=== PATIENT | male | born 1970 | race Caucasian/White ===

== ENCOUNTER 2021-03-09 21:05 | Inpatient (IN) | payer MEDICARE ==
[~2021-03-09] VITALS: Ht 193 cm; Wt 130.9 kg
[2021-03-09 21:42] VITALS: BP 134/88
[2021-03-09] MEDS ORDERED: LIPITOR 20 MG T20 M1 PO (21:46)
[2021-03-09] MEDS ORDERED: BUPROPION XL300 MG PO (21:46)
[2021-03-09] MEDS ORDERED: LEXAPRO20 MG PO (21:47)
[2021-03-09] MEDS ORDERED: SEROQUEL 25 MG25 MG PO (21:47)
[2021-03-09] MEDS ORDERED: LOSARTAN-HCTZ1 EAC3 PO (21:47)
[2021-03-09] MEDS ORDERED: NORVASC10 MG PO (21:48)
[2021-03-09] MEDS ORDERED: ETODOLAC 400 M400 M1 PO (21:48)
[2021-03-09] MEDS ORDERED: PROAIR DIGIHAL90 MCG (21:49)
[2021-03-09 21:55] LABS: ABSOLUTE LYMPHOCYTES 0.6 thou/uL (0.8-5.3); ABSOLUTE MONOCYTES 0.3 thou/uL (0.0-1.2); ABSOLUTE NEUTROPHILS 4.9 thou/uL (1.6-8.1); BASOPHILS 0.1 %; EOSINOPHILS 0.1 %; HEMOGLOBIN 13.9 gm/dL (14.0-18.0); LYMPHOCYTES 10.7 %; MCH 29.1 pg (26.0-34.0); MCV 88.4 fL (80.0-100.0); MONOCYTES 5.2 %; NUCLEATED RBCS 0 /100WBC; PLATELET COUNT* 255 thou/uL (150-400); POLYS 83.9 %; RBC 4.75 mil/uL (4.50-6.00); RDW-CV 14.4 % (10.5-14.5); WBC 5.8 thou/uL (4.0-11.0)
[2021-03-09 22:02] LABS: CALCIUM 8.3 mg/dL (8.5-10.1); CREATININE 2.2 mg/dL (0.6-1.3); POTASSIUM 3.6 mmol/L (3.5-5.1)
[2021-03-09 22:03] LABS: BE 0.8 mmol/L (-2 to +3); PCO2 35.2 mmHg (35.0-45.0); PO2 74.8 mmHg (75.0-100.0); pH 7.456 (7.340-7.450)
[2021-03-09 22:06] LABS: ALBUMIN 3.2 g/dL (3.4-5.0); MAGNESIUM 2.3 mg/dL (1.8-2.4); TOTAL BILIRUBIN 0.3 mg/dL (<0.1-1.0); TOTAL PROTEIN 7.8 g/dL (6.4-8.2)
[2021-03-10 02:44] VITALS: BP 137/79
[2021-03-10 06:26] VITALS: BP 127/65; BP 133/78
[2021-03-10 10:44] VITALS: BP 122/72
--- NOTE | 2021-03-10 13:20 | EKG ---
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[place] : 1970 Requested By: Susanna Hernandez Order Number: [id number] MD: Ronni Landin Measurements Intervals [place] Rate: 88 P: 33 MT: 153 QRS: 24 QRSD: 93 T: 44 QT: 437 QTc: 529 Interpretive Statements Sinus rhythm Probable left atrial enlargement Prolonged QT interval No previous ECG available for comparison Electronically Signed On 03-10-2021 13:20:07 LICENSE ISSUER by Ronni Landin [email or web address] <ELECTRONICALLY SIGNED> By: Ronni Landin MD, [facility] 03/10/21 1320 2135 2135 Ronni Landin MD, [facility] /EPI
[2021-03-10 14:44] VITALS: BP 109/70
[2021-03-10 18:36] VITALS: BP 144/85
[2021-03-11] VITALS (8 sets, daily range): BP systolic 116–134; BP diastolic 47–82
[2021-03-11 03:57] LABS: HEMATOCRIT 38.9 % (42.0-52.0); HEMOGLOBIN 12.8 gm/dL (14.0-18.0); MCH 28.9 pg (26.0-34.0); MCV 87.5 fL (80.0-100.0); MPV 8.1 fl. (7.2-11.1); NUCLEATED RBCS 0 /100WBC; PLATELET COUNT* 243 thou/uL (150-400); RBC 4.44 mil/uL (4.50-6.00); RDW-CV 13.8 % (10.5-14.5); WBC 9.9 thou/uL (4.0-11.0)
[2021-03-11 04:19] LABS: APTT 29.1 Seconds (25.0-31.3); PROTIME 9.9 Seconds (9.20-11.50)
[2021-03-11 04:27] LABS: ALBUMIN 2.5 g/dL (3.4-5.0); ALKALINE PHOSPHATASE 71 U/L (46-116); ANION GAP 8 mmol/L (7-16); BUN 23 mg/dL (7-18); CALCIUM 7.9 mg/dL (8.5-10.1); CHLORIDE 102 mmol/L (98-107); CHOLESTEROL 141 mg/dL (<200); CO2 30 mmol/L (21-32); CREATININE 1.6 mg/dL (0.6-1.3); GLUCOSE 154 mg/dL (70-99); HDL CHOLESTEROL 42 mg/dL (>40); LDL CHOLESTEROL 78 mg/dL (<100); MAGNESIUM 2.1 mg/dL (1.8-2.4); PHOSPHORUS* 2.7 mg/dL (2.5-4.9); POTASSIUM 3.7 mmol/L (3.5-5.1); SGOT 48 U/L (15-37); SGPT 48 U/L (30-65); SODIUM 140 mmol/L (136-145); TC:HDL 3.4 Ratio (Not establshd); TOTAL BILIRUBIN 0.3 mg/dL (<0.1-1.0); TOTAL PROTEIN 6.5 g/dL (6.4-8.2); TRIGLYCERIDE 107 mg/dL (<150); VLDL 21 mg/dL (<40)
[2021-03-11 04:29] LABS: SERUM ASSESSMENT Clear
[2021-03-11 06:10] LABS: ABSOLUTE MONOCYTES 0.4 thou/uL (0.0-1.2); ABSOLUTE NEUTROPHILS 8.5 thou/uL (1.6-8.1)
[2021-03-11 06:11] LABS: PLATELET ESTIMATE ADEQUATE
--- NOTE | 2021-03-11 11:21 | EKG ---
[place] [address] ELECTROCARDIOGRAM REPORT Name: UZMA HUERTA Room: [place] [address] ADM IN .R.#: [id number] Admission: 03/09/21 Attend Phys: Caleb Flores Discharge: Date of : 70 Date of Service: 03/11/21 1004 Report #: [id number] THIS REPORT FOR: //name// [facility] ED Test Date: 2021-03-11 Test Time: 10:04:47 Pat Name: UZMA HUERTA Department: Room: [facility] Gender: M [employer] Specialist: JAGDEEP : 1970 Requested By: Sean Faith Order Number: [id number] Merle MD: Ronni Landin Measurements Intervals [place] Rate: 78 P: 27 NV: 155 QRS: 5 QRSD: 90 T: 7 QT: 361 QTc: 412 Interpretive Statements Sinus rhythm Probable anteroseptal infarct, old Compared to ECG 03/09/2021 21:35:16 Myocardial infarct finding now possible Prolonged QT interval no longer present Electronically Signed On 03-11-2021 11:21:02 QUALITY PROCESS AUDITOR by Ronni Landin [email or web address] <ELECTRONICALLY SIGNED> By: Ronni Landin MD, [facility] 03/11/21 1121 1004 1004 Ronni Landin MD, [facility] /EPI
[2021-03-11] MEDS ORDERED: LODINE400 M1 PO (14:19)
[2021-03-11] MEDS ORDERED: DIPHENHIST50 MG PO (14:20)
[2021-03-11] MEDS ORDERED: TYLENOL325 M1 PO (14:22)
[2021-03-11] MEDS ORDERED: ARTIFICIAL TEAR1510 OPHTHALMIC (14:23)
[2021-03-12 03:53] VITALS: BP 126/68
[2021-03-12 04:47] LABS: BE 2.2 mmol/L (-2 to +3); PCO2 36.3 mmHg (35.0-45.0); pH 7.467 (7.340-7.450)
[2021-03-12 04:52] LABS: PO2 59.7 mmHg (75.0-100.0)
[2021-03-12 04:55] LABS: HEMATOCRIT 38.1 % (42.0-52.0); HEMOGLOBIN 12.8 gm/dL (14.0-18.0); MCH 29.1 pg (26.0-34.0); MCHC 33.5 g/dL (28.0-37.0); MCV 86.9 fL (80.0-100.0); MPV 7.6 fl. (7.2-11.1); RBC 4.39 mil/uL (4.50-6.00); RDW-CV 14.3 % (10.5-14.5)
[2021-03-12 05:33] LABS: CALCIUM 7.9 mg/dL (8.5-10.1); CREATININE 1.3 mg/dL (0.6-1.3); POTASSIUM 3.6 mmol/L (3.5-5.1)
[2021-03-12 07:08] LABS: GLYCOHEMOGLOBIN (HGB A1C) 6.8 % (4.8-5.6)
[2021-03-12 08:00] VITALS: BP 135/79
[2021-03-12 11:08] LABS: BE -2.5 mmol/L (-2 to +3)
[2021-03-12 11:12] LABS: PCO2 61.6 mmHg (35.0-45.0); pH 7.244 (7.340-7.450)
[2021-03-12 11:13] LABS: PO2 35.9 mmHg (75.0-100.0)
[2021-03-12 15:15] LABS: BE 1.6 mmol/L (-2 to +3); PCO2 40.6 mmHg (35.0-45.0); pH 7.425 (7.340-7.450)
[2021-03-12 15:19] LABS: PO2 34.1 mmHg (75.0-100.0)
[2021-03-12 16:53] LABS: BE -0.3 mmol/L (-2 to +3); PCO2 41.4 mmHg (35.0-45.0); pH 7.393 (7.340-7.450)
[2021-03-12 16:56] LABS: PO2 58.1 mmHg (75.0-100.0)
[2021-03-12 21:00] VITALS: BP 135/83
[2021-03-12 22:00] VITALS: BP 128/77
[2021-03-12 23:00] VITALS: BP 130/78; BP 130/79
[2021-03-12 23:33] VITALS: BP 130/78
[2021-03-13] VITALS (24 sets, daily range): BP systolic 96–135; BP diastolic 56–84
[2021-03-13 04:25] LABS: ABSOLUTE LYMPHOCYTES 0.5 thou/uL (0.8-5.3); ABSOLUTE MONOCYTES 0.2 thou/uL (0.0-1.2); ABSOLUTE NEUTROPHILS 6.4 thou/uL (1.6-8.1); BASOPHILS 0.2 %; HEMATOCRIT 39.2 % (42.0-52.0); LYMPHOCYTES 6.7 %; MCH 29.2 pg (26.0-34.0); MCHC 33.1 g/dL (28.0-37.0); MCV 88.1 fL (80.0-100.0); MONOCYTES 3.3 %; MPV 7.6 fl. (7.2-11.1); NUCLEATED RBCS 0 /100WBC; POLYS 89.8 %; RBC 4.44 mil/uL (4.50-6.00); RDW-CV 14.1 % (10.5-14.5); WBC 7.2 thou/uL (4.0-11.0)
[2021-03-13 04:26] LABS: PLATELET COUNT* 190 thou/uL (150-400)
[2021-03-13 04:52] LABS: ALBUMIN 2.3 g/dL (3.4-5.0); CALCIUM 8.1 mg/dL (8.5-10.1); CREATININE 1.5 mg/dL (0.6-1.3); MAGNESIUM 2.4 mg/dL (1.8-2.4); POTASSIUM 3.8 mmol/L (3.5-5.1); TOTAL BILIRUBIN 0.6 mg/dL (<0.1-1.0); TOTAL PROTEIN 6.7 g/dL (6.4-8.2)
[2021-03-13 05:02] LABS: PHOSPHORUS* 3.5 mg/dL (2.5-4.9)
[2021-03-13 10:17] LABS: PCO2 44.3 mmHg (35.0-45.0); pH 7.363 (7.340-7.450)
--- NOTE | 2021-03-13 14:01 | 2DMMODE ---
[place] [address] 2 D/M-MODE ECHOCARDIOGRAM Name: BRADLEYUZMA SEAMAN Room: [address] ADM IN .R.#: [id number] Admission: 03/09/21 Attend Phys: Caleb Flores Discharge: Date of : 70 Date of Service: 03/13/21 1401 Report #: [id number] THIS REPORT FOR: cc: FAM - No family physician/PCP FAM - No family physician/PCP Gokul Anand MD [facility] ~ APPROVED REPORT Study performed: 03/13/2021 11:40:53 EXAM: Comprehensive 2D, Doppler, and color-flow Echocardiogram Patient Location: In-Patient Room #: 001 Status: routine BSA: 2.63 HR: 69 bpm BP: 99/69 mmHg Rhythm: NSR Other Information Study Quality: Adequate.. no parasternal views Indications Dyspnea 2D Dimensions IVSd: 10.32 (7-11mm) LVOT Diam: 24.28 (18-24mm) LVDd: 42.02 mm PWd: 9.16 (7-11mm) Ascending Ao: 31.28 (22-36mm) LVDs: 26.86 (25-40mm) Aortic Root: 35.65 mm Volumes Left Atrial Volume (Systole) LA ESV Index: 12.00 mL/m2 Aortic Valve AoV Peak Bernard.: 1.05 m/s AO Peak Gr.: 4.42 mmHg LVOT Max P.56 mmHg AO Mean Gr.: 2.73 mmHg LVOT Mean P.20 mmHg LVOT Max V: 0.80 m/s AO V2 VTI: 19.17 cm LVOT Mean V: 0.50 m/s ESA (VTI): 4.03 cm2 LVOT V1 VTI: 16.70 [place] [address] 2 D/M-MODE ECHOCARDIOGRAM Name: UZMA HUERTA Room: [address] IN .R.#: [id number] Admission: 03/09/21 Attend Phys: Caleb Flores Discharge: Date of : 70 Date of Service: 03/13/21 1401 Report #: [id number] Mitral Valve E/A Ratio: 1.02 MV Decel. Time: 210.07 ms MV E Max Bernard.: 0.69 m/s MV PHT: 60.92 ms MVA (PHT): 3.61 cm2 TDI E/Lateral E': 5.75 Lateral E' Bernard.: 0.12 m/s Pulmonary Valve PV Peak Bernard.: 0.86 m/s PV Peak Gr.: 2.95 mmHg Tricuspid Valve RAP Estimate: 5.00 mmHg TR Peak Gr.: 20.67 mmHg RVSP: 25.00 mmHg PA Pressure: 25.00 mmHg Left Ventricle The left ventricle is normal size. There is normal LV segmental wall motion. There is normal left ventricular wall thickness. Left ventricular systolic function is normal. LVEF is 55-60%. Transmitral Doppler flow pattern suggests impaired LV relaxation. Right Ventricle The right ventricle is normal size. The right ventricular systolic function is normal. Atria The left atrium size is normal. The right atrium size is normal. Aortic Valve The aortic valve is normal in structure. No aortic regurgitation is present. There is no aortic valvular stenosis. Mitral Valve The mitral valve is normal in structure. There is no mitral valve regurgitation noted. No evidence of mitral valve stenosis. Tricuspid Valve The tricuspid valve is normal in structure. Trace tricuspid regurgitation. Unable to assess PA pressure[place] [address] 2 D/M-MODE ECHOCARDIOGRAM Name: BRADLEYUZMA Room: [address] IN [facility]#: [id number] Admission: 03/09/21 Attend Phys: Caleb Flores Discharge: Date of : 70 Date of Service: 03/13/21 1401 Report #: [id number] The pulmonary valve is normal in structure. Trace pulmonic regurgitation. Great Vessels The aortic root is normal in size. IVC is normal in size and collapses >50% with inspiration. Pericardium There is no pericardial effusion. <Conclusion> The left ventricle is normal size. There is normal left ventricular wall thickness. Left ventricular systolic function is normal. LVEF is 55-60%. Transmitral Doppler flow pattern suggests impaired LV relaxation. There is normal LV segmental wall motion. Trace tricuspid regurgitation. IVC is normal in size and collapses >50% with inspiration. <ELECTRONICALLY SIGNED> By: Gokul Anand MD, FACC 03/13/21 140 00 140 Gokul Anand MD, FACC /INF
[2021-03-14] VITALS (25 sets, daily range): BP systolic 99–143; BP diastolic 56–89
[2021-03-14 07:37] LABS: ABSOLUTE LYMPHOCYTES 0.4 thou/uL (0.8-5.3); ABSOLUTE MONOCYTES 0.7 thou/uL (0.0-1.2); ABSOLUTE NEUTROPHILS 10.2 thou/uL (1.6-8.1); BASOPHILS 0.1 %; HEMATOCRIT 37.5 % (42.0-52.0); HEMOGLOBIN 12.3 gm/dL (14.0-18.0); LYMPHOCYTES 3.5 %; MCH 28.6 pg (26.0-34.0); MCHC 32.6 g/dL (28.0-37.0); MCV 87.6 fL (80.0-100.0); MONOCYTES 5.8 %; MPV 7.9 fl. (7.2-11.1); NUCLEATED RBCS 0 /100WBC; PLATELET COUNT* 247 thou/uL (150-400); POLYS 90.6 %; RBC 4.29 mil/uL (4.50-6.00); RDW-CV 14.1 % (10.5-14.5); WBC 11.2 thou/uL (4.0-11.0)
[2021-03-14 07:48] LABS: ALBUMIN 2.3 g/dL (3.4-5.0); CREATININE 1.6 mg/dL (0.6-1.3); MAGNESIUM 3.1 mg/dL (1.8-2.4); POTASSIUM 3.8 mmol/L (3.5-5.1); TOTAL BILIRUBIN 0.3 mg/dL (<0.1-1.0); TOTAL PROTEIN 6.2 g/dL (6.4-8.2)
[2021-03-14 08:04] LABS: PHOSPHORUS* 3.5 mg/dL (2.5-4.9)
[2021-03-14 10:01] LABS: BE 1.3 mmol/L (-2 to +3); PCO2 41.7 mmHg (35.0-45.0); PO2 83.6 mmHg (75.0-100.0); pH 7.414 (7.340-7.450)
[2021-03-15] VITALS (24 sets, daily range): BP systolic 101–137; BP diastolic 68–86
[2021-03-15 05:31] LABS: HEMATOCRIT 37.5 % (42.0-52.0); HEMOGLOBIN 12.2 gm/dL (14.0-18.0); MCH 29.2 pg (26.0-34.0); MCHC 32.5 g/dL (28.0-37.0); MPV 8.2 fl. (7.2-11.1); NUCLEATED RBCS 0 /100WBC; PLATELET COUNT* 257 thou/uL (150-400); RBC 4.17 mil/uL (4.50-6.00); RDW-CV 14.5 % (10.5-14.5); WBC 13.2 thou/uL (4.0-11.0)
[2021-03-15 06:12] LABS: CREATININE 1.3 mg/dL (0.6-1.3); MAGNESIUM 2.7 mg/dL (1.8-2.4); POTASSIUM 4.3 mmol/L (3.5-5.1); TOTAL BILIRUBIN 0.4 mg/dL (<0.1-1.0); TOTAL PROTEIN 5.6 g/dL (6.4-8.2)
[2021-03-15 07:10] LABS: PHOSPHORUS* 3.8 mg/dL (2.5-4.9)
[2021-03-15 08:07] LABS: ABSOLUTE LYMPHOCYTES 0.4 thou/uL (0.8-5.3); ABSOLUTE NEUTROPHILS 12.2 thou/uL (1.6-8.1); LYMPHOCYTES 2.9 %; POLYS 92.4 %
[2021-03-15 08:08] LABS: ABSOLUTE MONOCYTES 0.6 thou/uL (0.0-1.2); BASOPHILS 0.1 %; MONOCYTES 4.6 %
[2021-03-15 09:32] LABS: BE 0.6 mmol/L (-2 to +3); pH 7.327 (7.340-7.450)
[2021-03-15 09:35] LABS: PCO2 53.7 mmHg (35.0-45.0); PO2 184.5 mmHg (75.0-100.0)
[2021-03-15 16:04] LABS: URINE BILIRUBIN NEGATIVE (Negative); URINE BLOOD 1+ (Negative); URINE CLARITY CLEAR; URINE COLOR YELLOW; URINE GLUCOSE-RANDOM NEGATIVE (Negative); URINE KETONES NEGATIVE (Negative); URINE LEUKOCYTES-REFLEX NEGATIVE (Negative); URINE NITRITE-REFLEX NEGATIVE (Negative); URINE PROTEIN NEGATIVE (Negative); URINE UROBILINOGEN 0.2 E.U./dl (0.2-1.0)
[2021-03-15 16:12] LABS: SQUAMOUS 0-3 Few /LPF (0-3)
[2021-03-15 16:13] LABS: BACTERIA-REFLEX 1-9 Few /HPF (None Seen); CRYSTALS None Seen /LPF (None Seen); HYALINE CASTS 0-3 Few /LPF (None Seen); URINE RBC 3-10 Few /HPF (0-2); URINE WBC-REFLEX 0-5 Rare /HPF (0-5)
[2021-03-15 16:24] LABS: CALCIUM 7.3 mg/dL (8.5-10.1); CREATININE 1.4 mg/dL (0.6-1.3); MAGNESIUM 2.7 mg/dL (1.8-2.4); POTASSIUM 4.4 mmol/L (3.5-5.1)
[2021-03-16] VITALS (21 sets, daily range): BP systolic 126–151; BP diastolic 75–88
[2021-03-16 04:12] LABS: ABSOLUTE LYMPHOCYTES 0.3 thou/uL (0.8-5.3); ABSOLUTE MONOCYTES 0.5 thou/uL (0.0-1.2); ABSOLUTE NEUTROPHILS 10.1 thou/uL (1.6-8.1); BASOPHILS 0.1 %; HEMATOCRIT 36.9 % (42.0-52.0); HEMOGLOBIN 11.8 gm/dL (14.0-18.0); LYMPHOCYTES 3.2 %; MCH 29.3 pg (26.0-34.0); MCV 91.6 fL (80.0-100.0); MONOCYTES 4.4 %; MPV 8.1 fl. (7.2-11.1); NUCLEATED RBCS 0 /100WBC; PLATELET COUNT* 261 thou/uL (150-400); POLYS 92.3 %; RBC 4.03 mil/uL (4.50-6.00); RDW-CV 14.5 % (10.5-14.5); WBC 10.9 thou/uL (4.0-11.0)
[2021-03-16 05:54] LABS: ALBUMIN 2.2 g/dL (3.4-5.0); CALCIUM 7.2 mg/dL (8.5-10.1); CREATININE 1.2 mg/dL (0.6-1.3); MAGNESIUM 2.8 mg/dL (1.8-2.4); PHOSPHORUS* 3.7 mg/dL (2.5-4.9); POTASSIUM 4.7 mmol/L (3.5-5.1); TOTAL BILIRUBIN 0.5 mg/dL (<0.1-1.0); TOTAL PROTEIN 5.5 g/dL (6.4-8.2)
[2021-03-16 14:43] LABS: BE 1.6 mmol/L (-2 to +3); PCO2 49.5 mmHg (35.0-45.0); PO2 97.3 mmHg (75.0-100.0); pH 7.365 (7.340-7.450)
[2021-03-16 14:49] LABS: CALCIUM 7.6 mg/dL (8.5-10.1); CREATININE 1.2 mg/dL (0.6-1.3); POTASSIUM 4.7 mmol/L (3.5-5.1)
[2021-03-17] VITALS (29 sets, daily range): BP systolic 123–148; BP diastolic 50–97
[2021-03-17 05:05] LABS: MCV 89.8 fL (80.0-100.0); NUCLEATED RBCS 0 /100WBC; WBC 13.1 thou/uL (4.0-11.0)
[2021-03-17 05:06] LABS: HEMATOCRIT 33.3 % (42.0-52.0); HEMOGLOBIN 10.9 gm/dL (14.0-18.0); MCH 29.4 pg (26.0-34.0); MCHC 32.8 g/dL (28.0-37.0); MPV 8.6 fl. (7.2-11.1); PLATELET COUNT* 217 thou/uL (150-400); RDW-CV 14.1 % (10.5-14.5)
[2021-03-17 05:27] LABS: ALBUMIN 1.8 g/dL (3.4-5.0); CALCIUM 6.9 mg/dL (8.5-10.1); MAGNESIUM 2.2 mg/dL (1.8-2.4); PHOSPHORUS* 2.6 mg/dL (2.5-4.9); POTASSIUM 3.8 mmol/L (3.5-5.1); TOTAL BILIRUBIN 0.7 mg/dL (<0.1-1.0); TOTAL PROTEIN 4.9 g/dL (6.4-8.2)
[2021-03-17 07:03] LABS: ABSOLUTE LYMPHOCYTES 3.9 thou/uL (0.8-5.3); ABSOLUTE MONOCYTES 0.7 thou/uL (0.0-1.2); ABSOLUTE NEUTROPHILS 8.5 thou/uL (1.6-8.1)
[2021-03-17 07:04] LABS: PLATELET ESTIMATE ADEQUATE
--- NOTE | 2021-03-17 18:57 | CON ---
[address] [address] CONSULTATION Name: UZMA HUERTA Room: [address] ADM IN M.R.#: [id number] Admission: 03/09/21 Attend Phys: Julia Dominguez Discharge: Date of : 70 Report #: [id number] THIS REPORT FOR: cc: JAGJIT - No family physician/PCP JAGJIT - No family physician/PCP Deyvi Vallejo MD ~ DATE OF CONSULTATION: 03/12/2021 REQUESTING PHYSICIAN: Dr. Faith. INDICATION FOR CONSULTATION: Acute hypoxemic respiratory failure secondary to COVID-19. HISTORY OF PRESENT ILLNESS: A 50-year-old gentleman, past medical history is as mentioned below. He is unvaccinated for COVID-19, is now here with respiratory distress secondary to COVID-19. We were unable to maintain O2 saturation on BiPAP and therefore intubated him. The patient is currently requiring paralysis to barely maintain O2 saturation at the high 80s. The patient is unable to provide a further history or review of systems is negative. PAST MEDICAL HISTORY: Diet-controlled diabetes, COPD, depression, hypertension, hyperlipidemia, obesity, body mass index 37, he likely has previously history of obstructive sleep apnea, unknown to me as to whether this has been diagnosed. SOCIAL HISTORY: There is no known history of smoking; however, he has mentioned to have COPD as above. I am unable to ask the patient directly. No known history of heavy alcohol use or illegal drug use. CURRENT MEDICATIONS: List in [facility] reviewed. HOME MEDICATIONS: List in [facility] reviewed. ALLERGIES: CODEINE. FAMILY HISTORY: No pertinent family history. PHYSICAL EXAMINATION: VITAL SIGNS: In the records reviewed with maximal settings on the ventilator with paralysis via finally gotten his O2 saturation up to the high 80s. Endotracheal tube is in good position. NECK: Does not show raised JVP. CHEST: Breath sounds are bilaterally equal. No added sounds. HEART: Regular. No murmur. ABDOMEN: Protuberant, nontender. EXTREMITIES: Lower extremities, trace edema, [place] [address] CONSULTATION Name: UZMA HUERTA Room: [address] IN ..#: [id number] Admission: 03/09/21 Attend Phys: Julia Dominguez Discharge: Date of : 70 Report #: [id number] NEUROLOGIC: Nonfocal before he was sedated and paralyzed. LABORATORY DATA: Chest x-rays are in [facility] and these are reviewed. ASSESSMENT AND PLAN: 1. Acute hypoxemic respiratory failure secondary to COVID-19. The patient is on maximal settings on the ventilator and we have just started paralysis as well. With this, we barely getting O2 saturation in the high 80s. He has a large abdomen. Therefore, it may or may not be beneficial to prone him. We will put him on his side and see how he does. If able to get an A-line, follow ABGs. While understanding risk of renal failure, I did order a large dose of Lasix. We will given potassium with it. We will adjust sedation and follow. 2. COVID-19. Considering inability to oxygenate, I have ordered significant doses of steroid. We will follow remdesivir. Follow LFTs. If Actemra is available, will be beneficial. 3. Pulmonary infiltrates, broaden the antibiotic coverage; however, primarily appears to have acute respiratory distress syndrome secondary to COVID-19. More cultures and serologies are ordered. 4. Hyperglycemia, insulin sliding scale. 5. Gastrointestinal prophylaxis, Protonix. 6. Clostridium difficile prophylaxis, Lactinex. 7. Deep venous thrombosis prophylaxis, intermediate dose Lovenox. 8. History of chronic obstructive pulmonary disease. I do not have details available. I will treat him with nebulized bronchodilators. He is on steroid as above. 9. History of obesity, likely has underlying obstructive sleep apnea. 10. History of bupropion as well as Celexa use. The patient is critically ill at this time. Total time spent providing critical care to this patient today exceeds 50 minutes. <ELECTRONICALLY SIGNED> By: Deyvi Vallejo MD 03/17/21 1857 1442 1857Awaylon Vallejo MD /nt
[2021-03-18] VITALS (40 sets, daily range): BP systolic 128–158; BP diastolic 77–102
[2021-03-18 05:17] LABS: ABSOLUTE LYMPHOCYTES 0.4 thou/uL (0.8-5.3); ABSOLUTE MONOCYTES 0.4 thou/uL (0.0-1.2); ABSOLUTE NEUTROPHILS 9.9 thou/uL (1.6-8.1); BASOPHILS 0.1 %; EOSINOPHILS 0.1 %; HEMATOCRIT 31.7 % (42.0-52.0); HEMOGLOBIN 10.5 gm/dL (14.0-18.0); LYMPHOCYTES 4.1 %; MCH 29.4 pg (26.0-34.0); MCV 89.2 fL (80.0-100.0); MONOCYTES 3.3 %; MPV 8.3 fl. (7.2-11.1); NUCLEATED RBCS 0 /100WBC; PLATELET COUNT* 166 thou/uL (150-400); POLYS 92.4 %; RBC 3.55 mil/uL (4.50-6.00); RDW-CV 14.1 % (10.5-14.5); WBC 10.7 thou/uL (4.0-11.0)
[2021-03-18 05:53] LABS: PHOSPHORUS* 2.5 mg/dL (2.5-4.9)
[2021-03-18 06:04] LABS: ALBUMIN 2.4 g/dL (3.4-5.0); CALCIUM 7.1 mg/dL (8.5-10.1); CREATININE 0.9 mg/dL (0.6-1.3); MAGNESIUM 2.4 mg/dL (1.8-2.4); POTASSIUM 3.9 mmol/L (3.5-5.1); TOTAL BILIRUBIN 1.1 mg/dL (<0.1-1.0); TOTAL PROTEIN 5.3 g/dL (6.4-8.2)
[2021-03-18 08:49] LABS: BE 4.3 mmol/L (-2 to +3); PCO2 43.4 mmHg (35.0-45.0); PO2 74.4 mmHg (75.0-100.0); pH 7.442 (7.340-7.450)
[2021-03-19] VITALS (47 sets, daily range): BP systolic 132–159; BP diastolic 76–107
[2021-03-19 05:14] LABS: ABSOLUTE BASOPHILS 0.1 thou/uL (0.0-0.2); ABSOLUTE LYMPHOCYTES 0.2 thou/uL (0.8-5.3); ABSOLUTE MONOCYTES 0.3 thou/uL (0.0-1.2); ABSOLUTE NEUTROPHILS 11.9 thou/uL (1.6-8.1); BASOPHILS 0.8 %; HEMATOCRIT 33.4 % (42.0-52.0); HEMOGLOBIN 10.8 gm/dL (14.0-18.0); LYMPHOCYTES 1.8 %; MCHC 32.3 g/dL (28.0-37.0); MCV 89.7 fL (80.0-100.0); MONOCYTES 2.6 %; MPV 8.9 fl. (7.2-11.1); NUCLEATED RBCS 0 /100WBC; PLATELET COUNT* 172 thou/uL (150-400); POLYS 94.8 %; RBC 3.72 mil/uL (4.50-6.00); RDW-CV 14.1 % (10.5-14.5); WBC 12.5 thou/uL (4.0-11.0)
[2021-03-19 05:22] LABS: ALBUMIN 2.3 g/dL (3.4-5.0); CALCIUM 7.4 mg/dL (8.5-10.1); CREATININE 1.1 mg/dL (0.6-1.3); MAGNESIUM 2.4 mg/dL (1.8-2.4); POTASSIUM 4.2 mmol/L (3.5-5.1); TOTAL PROTEIN 5.4 g/dL (6.4-8.2)
[2021-03-19 05:49] LABS: PHOSPHORUS* 3.6 mg/dL (2.5-4.9)
[2021-03-19 08:48] LABS: BE 1.7 mmol/L (-2 to +3); pH 7.424 (7.340-7.450)
[2021-03-20] VITALS (47 sets, daily range): BP systolic 104–158; BP diastolic 80–96
[2021-03-20 04:27] LABS: ABSOLUTE LYMPHOCYTES 0.5 thou/uL (0.8-5.3); ABSOLUTE MONOCYTES 0.3 thou/uL (0.0-1.2); ABSOLUTE NEUTROPHILS 11.8 thou/uL (1.6-8.1); BASOPHILS 0.2 %; EOSINOPHILS 0.1 %; HEMATOCRIT 32.5 % (42.0-52.0); HEMOGLOBIN 10.5 gm/dL (14.0-18.0); LYMPHOCYTES 3.6 %; MCH 29.2 pg (26.0-34.0); MCHC 32.3 g/dL (28.0-37.0); MCV 90.4 fL (80.0-100.0); MONOCYTES 2.4 %; MPV 9.4 fl. (7.2-11.1); NUCLEATED RBCS 0 /100WBC; PLATELET COUNT* 171 thou/uL (150-400); POLYS 93.7 %; RBC 3.59 mil/uL (4.50-6.00); RDW-CV 14.5 % (10.5-14.5); WBC 12.6 thou/uL (4.0-11.0)
[2021-03-20 04:45] LABS: ALBUMIN 2.2 g/dL (3.4-5.0); CALCIUM 7.3 mg/dL (8.5-10.1); CREATININE 0.9 mg/dL (0.6-1.3); POTASSIUM 4.4 mmol/L (3.5-5.1); TOTAL BILIRUBIN 0.9 mg/dL (<0.1-1.0); TOTAL PROTEIN 5.3 g/dL (6.4-8.2)
[2021-03-20 17:48] LABS: CALCIUM 7.9 mg/dL (8.5-10.1); POTASSIUM 4.4 mmol/L (3.5-5.1)
[2021-03-21] VITALS (44 sets, daily range): BP systolic 108–156; BP diastolic 66–100
[2021-03-21 05:42] LABS: HEMOGLOBIN 10.7 gm/dL (14.0-18.0); MCH 28.9 pg (26.0-34.0); MCHC 32.3 g/dL (28.0-37.0); MCV 89.3 fL (80.0-100.0); MPV 9.7 fl. (7.2-11.1); NUCLEATED RBCS 0 /100WBC; PLATELET COUNT* 196 thou/uL (150-400); RBC 3.69 mil/uL (4.50-6.00); RDW-CV 13.9 % (10.5-14.5); WBC 13.2 thou/uL (4.0-11.0)
[2021-03-21 06:12] LABS: PHOSPHORUS* 4.4 mg/dL (2.5-4.9)
[2021-03-21 06:23] LABS: ALBUMIN 2.4 g/dL (3.4-5.0); CALCIUM 7.6 mg/dL (8.5-10.1); CREATININE 0.9 mg/dL (0.6-1.3); POTASSIUM 4.4 mmol/L (3.5-5.1); TOTAL BILIRUBIN 1.1 mg/dL (<0.1-1.0); TOTAL PROTEIN 5.5 g/dL (6.4-8.2)
[2021-03-21 07:02] LABS: ABSOLUTE EOSINOPHILS 0.1 thou/uL (0.0-0.7); ABSOLUTE LYMPHOCYTES 1.6 thou/uL (0.8-5.3); ABSOLUTE MONOCYTES 0.4 thou/uL (0.0-1.2); ABSOLUTE NEUTROPHILS 11.1 thou/uL (1.6-8.1); HYPOCHROMASIA 1+; PLATELET ESTIMATE ADEQUATE
[2021-03-21 08:54] LABS: BE 4.6 mmol/L (-2 to +3); PO2 62.1 mmHg (75.0-100.0); pH 7.472 (7.340-7.450)
[2021-03-21 15:45] LABS: CALCIUM 7.8 mg/dL (8.5-10.1); CREATININE 0.8 mg/dL (0.6-1.3); MAGNESIUM 1.9 mg/dL (1.8-2.4); POTASSIUM 4.5 mmol/L (3.5-5.1)
[2021-03-22] VITALS (25 sets, daily range): BP systolic 118–145; BP diastolic 63–95
[2021-03-22 04:33] LABS: ABSOLUTE LYMPHOCYTES 0.4 thou/uL (0.8-5.3); ABSOLUTE MONOCYTES 0.5 thou/uL (0.0-1.2); ABSOLUTE NEUTROPHILS 13.2 thou/uL (1.6-8.1); EOSINOPHILS 0.1 %; HEMATOCRIT 30.6 % (42.0-52.0); LYMPHOCYTES 2.9 %; MCH 29.2 pg (26.0-34.0); MCHC 32.6 g/dL (28.0-37.0); MCV 89.3 fL (80.0-100.0); MONOCYTES 3.2 %; MPV 10.1 fl. (7.2-11.1); NUCLEATED RBCS 0 /100WBC; PLATELET COUNT* 174 thou/uL (150-400); POLYS 93.8 %; RBC 3.42 mil/uL (4.50-6.00); RDW-CV 13.9 % (10.5-14.5); WBC 14.1 thou/uL (4.0-11.0)
[2021-03-22 05:18] LABS: ALBUMIN 2.6 g/dL (3.4-5.0); CALCIUM 7.6 mg/dL (8.5-10.1); CREATININE 0.7 mg/dL (0.6-1.3); MAGNESIUM 1.9 mg/dL (1.8-2.4); POTASSIUM 4.1 mmol/L (3.5-5.1); TOTAL BILIRUBIN 1.1 mg/dL (<0.1-1.0); TOTAL PROTEIN 5.3 g/dL (6.4-8.2)
[2021-03-22 08:25] LABS: BE 2.1 mmol/L (-2 to +3); PCO2 38.1 mmHg (35.0-45.0); PO2 70.9 mmHg (75.0-100.0); pH 7.453 (7.340-7.450)
[2021-03-23] VITALS (35 sets, daily range): BP systolic 106–150; BP diastolic 64–89
[2021-03-23 05:25] LABS: ABSOLUTE LYMPHOCYTES 0.6 thou/uL (0.8-5.3); ABSOLUTE MONOCYTES 0.4 thou/uL (0.0-1.2); ABSOLUTE NEUTROPHILS 12.1 thou/uL (1.6-8.1); BASOPHILS 0.3 %; EOSINOPHILS 0.1 %; HEMATOCRIT 31.7 % (42.0-52.0); HEMOGLOBIN 10.2 gm/dL (14.0-18.0); LYMPHOCYTES 4.8 %; MCH 28.8 pg (26.0-34.0); MCHC 32.2 g/dL (28.0-37.0); MCV 89.3 fL (80.0-100.0); MPV 9.6 fl. (7.2-11.1); NUCLEATED RBCS 0 /100WBC; PLATELET COUNT* 225 thou/uL (150-400); POLYS 91.8 %; RBC 3.55 mil/uL (4.50-6.00); RDW-CV 13.7 % (10.5-14.5); WBC 13.2 thou/uL (4.0-11.0)
[2021-03-23 05:34] LABS: ALBUMIN 2.5 g/dL (3.4-5.0); CALCIUM 7.9 mg/dL (8.5-10.1); CREATININE 0.6 mg/dL (0.6-1.3); POTASSIUM 4.5 mmol/L (3.5-5.1); TOTAL BILIRUBIN 0.9 mg/dL (<0.1-1.0); TOTAL PROTEIN 5.6 g/dL (6.4-8.2)
[2021-03-23 05:52] LABS: PREALBUMIN 21.1 mg/dL (18.0-35.7)
[2021-03-24] VITALS (45 sets, daily range): BP systolic 86–169; BP diastolic 51–98
[2021-03-24 04:32] LABS: ABSOLUTE BASOPHILS 0.2 thou/uL (0.0-0.2); ABSOLUTE EOSINOPHILS 0.1 thou/uL (0.0-0.7); ABSOLUTE LYMPHOCYTES 0.4 thou/uL (0.8-5.3); ABSOLUTE MONOCYTES 0.6 thou/uL (0.0-1.2); ABSOLUTE NEUTROPHILS 15.7 thou/uL (1.6-8.1); BASOPHILS 0.9 %; EOSINOPHILS 0.4 %; HEMOGLOBIN 10.4 gm/dL (14.0-18.0); LYMPHOCYTES 2.5 %; MCH 28.8 pg (26.0-34.0); MCHC 32.4 g/dL (28.0-37.0); MCV 88.8 fL (80.0-100.0); MONOCYTES 3.7 %; MPV 9.2 fl. (7.2-11.1); NUCLEATED RBCS 0 /100WBC; PLATELET COUNT* 292 thou/uL (150-400); POLYS 92.5 %; RDW-CV 13.6 % (10.5-14.5)
[2021-03-24 04:50] LABS: ALBUMIN 2.5 g/dL (3.4-5.0); CALCIUM 7.7 mg/dL (8.5-10.1); CREATININE 0.8 mg/dL (0.6-1.3); MAGNESIUM 1.8 mg/dL (1.8-2.4); PHOSPHORUS* 3.7 mg/dL (2.5-4.9); POTASSIUM 4.3 mmol/L (3.5-5.1); TOTAL BILIRUBIN 1.1 mg/dL (<0.1-1.0); TOTAL PROTEIN 5.4 g/dL (6.4-8.2)
[2021-03-25] VITALS (172 sets, daily range): BP systolic 65–203; BP diastolic 26–115
[2021-03-25 09:26] LABS: HEMATOCRIT 30.7 % (42.0-52.0); MCH 29.2 pg (26.0-34.0); MCHC 32.7 g/dL (28.0-37.0); MCV 89.3 fL (80.0-100.0); MPV 8.7 fl. (7.2-11.1); NUCLEATED RBCS 0 /100WBC; RBC 3.44 mil/uL (4.50-6.00); RDW-CV 13.9 % (10.5-14.5)
[2021-03-25 09:32] LABS: PLATELET COUNT* 375 thou/uL (150-400)
[2021-03-25 09:43] LABS: ALBUMIN 2.6 g/dL (3.4-5.0); CALCIUM 7.6 mg/dL (8.5-10.1); CREATININE 0.9 mg/dL (0.6-1.3); MAGNESIUM 2.3 mg/dL (1.8-2.4); POTASSIUM 3.5 mmol/L (3.5-5.1); TOTAL PROTEIN 5.5 g/dL (6.4-8.2)
[2021-03-25 10:26] LABS: ABSOLUTE EOSINOPHILS 0.4 thou/uL (0.0-0.7); ABSOLUTE LYMPHOCYTES 1.4 thou/uL (0.8-5.3); ABSOLUTE MONOCYTES 0.7 thou/uL (0.0-1.2); ABSOLUTE NEUTROPHILS 15.5 thou/uL (1.6-8.1); PLATELET ESTIMATE ADEQUATE
[2021-03-25 14:23] LABS: CREATININE 0.7 mg/dL (0.6-1.3); POTASSIUM 3.8 mmol/L (3.5-5.1)
[2021-03-25 14:36] LABS: MAGNESIUM 1.8 mg/dL (1.8-2.4)
[2021-03-25 14:45] LABS: CALCIUM 5.3 mg/dL (8.5-10.1)
[2021-03-25 17:39] LABS: CREATININE 0.8 mg/dL (0.6-1.3); MAGNESIUM 2.5 mg/dL (1.8-2.4)
[2021-03-25 17:44] LABS: CALCIUM 7.8 mg/dL (8.5-10.1)
[2021-03-26] VITALS (145 sets, daily range): BP systolic 74–155; BP diastolic 25–95
[2021-03-26 04:44] LABS: ABSOLUTE EOSINOPHILS 0.1 thou/uL (0.0-0.7); ABSOLUTE LYMPHOCYTES 1.1 thou/uL (0.8-5.3); ABSOLUTE MONOCYTES 0.8 thou/uL (0.0-1.2); ABSOLUTE NEUTROPHILS 14.6 thou/uL (1.6-8.1); BASOPHILS 0.2 %; EOSINOPHILS 0.5 %; HEMATOCRIT 28.6 % (42.0-52.0); LYMPHOCYTES 6.4 %; MCH 31.4 pg (26.0-34.0); MCHC 34.8 g/dL (28.0-37.0); MCV 90.3 fL (80.0-100.0); MONOCYTES 4.8 %; NUCLEATED RBCS 0 /100WBC; PLATELET COUNT* 338 thou/uL (150-400); POLYS 88.1 %; RBC 3.17 mil/uL (4.50-6.00); RDW-CV 14.7 % (10.5-14.5); WBC 16.6 thou/uL (4.0-11.0)
[2021-03-26 05:41] LABS: POTASSIUM 3.4 mmol/L (3.5-5.1)
[2021-03-26 05:44] LABS: PHOSPHORUS* 3.1 mg/dL (2.5-4.9)
[2021-03-26 07:31] LABS: CREATININE 0.9 mg/dL (0.6-1.3)
[2021-03-26 07:32] LABS: ALBUMIN 2.5 g/dL (3.4-5.0); CALCIUM 6.8 mg/dL (8.5-10.1); MAGNESIUM 2.2 mg/dL (1.8-2.4); TOTAL BILIRUBIN 0.8 mg/dL (<0.1-1.0); TOTAL PROTEIN 4.9 g/dL (6.4-8.2)
[2021-03-26 15:42] LABS: BE 2.9 mmol/L (-2 to +3); PCO2 37.1 mmHg (35.0-45.0); PO2 61.9 mmHg (75.0-100.0); pH 7.471 (7.340-7.450)
[2021-03-26 18:11] LABS: CALCIUM 7.9 mg/dL (8.5-10.1); CREATININE 0.9 mg/dL (0.6-1.3); MAGNESIUM 2.3 mg/dL (1.8-2.4)
[2021-03-26 18:12] LABS: POTASSIUM 4.4 mmol/L (3.5-5.1)
[2021-03-27] VITALS (105 sets, daily range): BP systolic 88–126; BP diastolic 40–72
[2021-03-27 05:29] LABS: ABSOLUTE EOSINOPHILS 0.1 thou/uL (0.0-0.7); ABSOLUTE MONOCYTES 0.5 thou/uL (0.0-1.2); ABSOLUTE NEUTROPHILS 11.9 thou/uL (1.6-8.1); BASOPHILS 0.2 %; EOSINOPHILS 0.4 %; HEMATOCRIT 28.3 % (42.0-52.0); HEMOGLOBIN 9.2 gm/dL (14.0-18.0); LYMPHOCYTES 7.3 %; MCH 29.3 pg (26.0-34.0); MCHC 32.6 g/dL (28.0-37.0); MPV 8.4 fl. (7.2-11.1); NUCLEATED RBCS 0 /100WBC; PLATELET COUNT* 282 thou/uL (150-400); POLYS 88.1 %; RBC 3.15 mil/uL (4.50-6.00); RDW-CV 14.6 % (10.5-14.5); WBC 13.5 thou/uL (4.0-11.0)
[2021-03-27 06:01] LABS: ALBUMIN 2.9 g/dL (3.4-5.0); CREATININE 0.8 mg/dL (0.6-1.3); MAGNESIUM 2.2 mg/dL (1.8-2.4); TOTAL BILIRUBIN 0.6 mg/dL (<0.1-1.0)
[2021-03-27 20:16] LABS: CALCIUM 7.8 mg/dL (8.5-10.1); CREATININE 0.7 mg/dL (0.6-1.3); MAGNESIUM 2.5 mg/dL (1.8-2.4); POTASSIUM 4.4 mmol/L (3.5-5.1)
[2021-03-28] VITALS (48 sets, daily range): BP systolic 90–148; BP diastolic 54–93
[2021-03-28 04:00] LABS: ABSOLUTE EOSINOPHILS 0.3 thou/uL (0.0-0.7); ABSOLUTE LYMPHOCYTES 1.5 thou/uL (0.8-5.3); ABSOLUTE MONOCYTES 0.5 thou/uL (0.0-1.2); ABSOLUTE NEUTROPHILS 9.7 thou/uL (1.6-8.1); BASOPHILS 0.3 %; EOSINOPHILS 2.2 %; HEMATOCRIT 26.7 % (42.0-52.0); HEMOGLOBIN 8.5 gm/dL (14.0-18.0); LYMPHOCYTES 12.8 %; MCH 29.2 pg (26.0-34.0); MCV 91.1 fL (80.0-100.0); MPV 8.4 fl. (7.2-11.1); NUCLEATED RBCS 0 /100WBC; PLATELET COUNT* 296 thou/uL (150-400); POLYS 80.7 %; RBC 2.93 mil/uL (4.50-6.00); WBC 12.1 thou/uL (4.0-11.0)
[2021-03-28 04:21] LABS: ALBUMIN 2.7 g/dL (3.4-5.0); CALCIUM 7.8 mg/dL (8.5-10.1); CREATININE 0.9 mg/dL (0.6-1.3); MAGNESIUM 2.4 mg/dL (1.8-2.4); POTASSIUM 3.7 mmol/L (3.5-5.1); TOTAL BILIRUBIN 0.6 mg/dL (<0.1-1.0); TOTAL PROTEIN 5.7 g/dL (6.4-8.2)
[2021-03-28 04:33] LABS: PHOSPHORUS* 3.3 mg/dL (2.5-4.9)
[2021-03-28 16:56] LABS: BE 4.1 mmol/L (-2 to +3); PCO2 44.4 mmHg (35.0-45.0); PO2 99.6 mmHg (75.0-100.0); pH 7.431 (7.340-7.450)
[2021-03-28 19:33] LABS: CREATININE 0.8 mg/dL (0.6-1.3); MAGNESIUM 2.4 mg/dL (1.8-2.4); POTASSIUM 4.5 mmol/L (3.5-5.1)
[2021-03-29] VITALS (29 sets, daily range): BP systolic 107–166; BP diastolic 69–105
[2021-03-29 05:12] LABS: ALBUMIN 2.4 g/dL (3.4-5.0); CALCIUM 7.8 mg/dL (8.5-10.1); CREATININE 0.8 mg/dL (0.6-1.3); MAGNESIUM 2.3 mg/dL (1.8-2.4); POTASSIUM 3.9 mmol/L (3.5-5.1); TOTAL BILIRUBIN 0.5 mg/dL (<0.1-1.0); TOTAL PROTEIN 5.6 g/dL (6.4-8.2)
[2021-03-29 05:51] LABS: ABSOLUTE BASOPHILS 0.1 thou/uL (0.0-0.2); ABSOLUTE EOSINOPHILS 0.2 thou/uL (0.0-0.7); ABSOLUTE LYMPHOCYTES 1.2 thou/uL (0.8-5.3); ABSOLUTE MONOCYTES 0.5 thou/uL (0.0-1.2); ABSOLUTE NEUTROPHILS 8.6 thou/uL (1.6-8.1); BASOPHILS 1.1 %; EOSINOPHILS 1.9 %; HEMATOCRIT 28.5 % (42.0-52.0); HEMOGLOBIN 8.8 gm/dL (14.0-18.0); LYMPHOCYTES 11.2 %; MCH 28.1 pg (26.0-34.0); MCHC 30.7 g/dL (28.0-37.0); MCV 91.2 fL (80.0-100.0); MONOCYTES 4.6 %; MPV 8.5 fl. (7.2-11.1); NUCLEATED RBCS 0 /100WBC; PLATELET COUNT* 283 thou/uL (150-400); POLYS 81.2 %; RBC 3.12 mil/uL (4.50-6.00); RDW-CV 15.2 % (10.5-14.5); WBC 10.6 thou/uL (4.0-11.0)
[2021-03-29 15:52] LABS: PCO2 43.9 mmHg (35.0-45.0); PO2 62.4 mmHg (75.0-100.0); pH 7.406 (7.340-7.450)
[2021-03-29 15:53] LABS: BE 1.9 mmol/L (-2 to +3)
[2021-03-30] VITALS (21 sets, daily range): BP systolic 97–135; BP diastolic 47–86
[2021-03-30 04:37] LABS: ABSOLUTE BASOPHILS 0.1 thou/uL (0.0-0.2); ABSOLUTE EOSINOPHILS 0.3 thou/uL (0.0-0.7); ABSOLUTE LYMPHOCYTES 1.4 thou/uL (0.8-5.3); ABSOLUTE MONOCYTES 0.5 thou/uL (0.0-1.2); ABSOLUTE NEUTROPHILS 9.9 thou/uL (1.6-8.1); BASOPHILS 0.7 %; EOSINOPHILS 2.2 %; HEMATOCRIT 28.8 % (42.0-52.0); HEMOGLOBIN 9.3 gm/dL (14.0-18.0); LYMPHOCYTES 11.6 %; MCH 29.2 pg (26.0-34.0); MCHC 32.2 g/dL (28.0-37.0); MCV 90.9 fL (80.0-100.0); MONOCYTES 4.2 %; MPV 8.2 fl. (7.2-11.1); NUCLEATED RBCS 0 /100WBC; PLATELET COUNT* 298 thou/uL (150-400); POLYS 81.3 %; RBC 3.17 mil/uL (4.50-6.00); RDW-CV 14.6 % (10.5-14.5); WBC 12.2 thou/uL (4.0-11.0)
[2021-03-30 05:28] LABS: ALBUMIN 2.6 g/dL (3.4-5.0); CREATININE 0.7 mg/dL (0.6-1.3); POTASSIUM 3.7 mmol/L (3.5-5.1); TOTAL BILIRUBIN 0.7 mg/dL (<0.1-1.0); TOTAL PROTEIN 5.8 g/dL (6.4-8.2)
[2021-03-30 05:49] LABS: BE 1.2 mmol/L (-2 to +3); PCO2 35.1 mmHg (35.0-45.0); PO2 64.9 mmHg (75.0-100.0); pH 7.466 (7.340-7.450)
[2021-03-31] VITALS (38 sets, daily range): BP systolic 85–148; BP diastolic 46–87
[2021-03-31 08:15] LABS: HEMATOCRIT 28.5 % (42.0-52.0); HEMOGLOBIN 9.4 gm/dL (14.0-18.0); MCV 93.8 fL (80.0-100.0); MPV 8.6 fl. (7.2-11.1); NUCLEATED RBCS 0 /100WBC; PLATELET COUNT* 284 thou/uL (150-400); RBC 3.04 mil/uL (4.50-6.00); RDW-CV 14.9 % (10.5-14.5); WBC 11.1 thou/uL (4.0-11.0)
[2021-03-31 08:17] LABS: CREATININE 0.7 mg/dL (0.6-1.3); MAGNESIUM 2.2 mg/dL (1.8-2.4); POTASSIUM 3.9 mmol/L (3.5-5.1)
[2021-03-31 09:20] LABS: ABSOLUTE BASOPHILS 0.1 thou/uL (0.0-0.2); ABSOLUTE EOSINOPHILS 0.4 thou/uL (0.0-0.7); ABSOLUTE LYMPHOCYTES 1.6 thou/uL (0.8-5.3); ABSOLUTE MONOCYTES 0.3 thou/uL (0.0-1.2); ABSOLUTE NEUTROPHILS 8.7 thou/uL (1.6-8.1); PLATELET ESTIMATE ADEQUATE
[2021-03-31 10:36] LABS: BE 0.8 mmol/L (-2 to +3); PCO2 38.2 mmHg (35.0-45.0); PO2 71.3 mmHg (75.0-100.0); pH 7.434 (7.340-7.450)
[2021-03-31 17:27] LABS: BE -4.9 mmol/L (-2 to +3); PO2 65.9 mmHg (75.0-100.0)
[2021-03-31 17:33] LABS: PCO2 70.6 mmHg (35.0-45.0)
[2021-03-31 22:00] LABS: BE -1.7 mmol/L (-2 to +3); PO2 79.5 mmHg (75.0-100.0)
[2021-03-31 22:03] LABS: PCO2 52.4 mmHg (35.0-45.0)
[2021-04-01] VITALS (87 sets, daily range): BP systolic 78–145; BP diastolic 34–78
[2021-04-01 07:59] LABS: BE -3.2 mmol/L (-2 to +3)
[2021-04-01 08:05] LABS: PCO2 56.2 mmHg (35.0-45.0); PO2 140.2 mmHg (75.0-100.0); pH 7.255 (7.340-7.450)
[2021-04-01 10:04] LABS: ABSOLUTE LYMPHOCYTES 0.3 thou/uL (0.8-5.3); ABSOLUTE MONOCYTES 0.1 thou/uL (0.0-1.2); ABSOLUTE NEUTROPHILS 8.4 thou/uL (1.6-8.1); BASOPHILS 0.1 %; EOSINOPHILS 0.1 %; HEMATOCRIT 26.3 % (42.0-52.0); HEMOGLOBIN 8.3 gm/dL (14.0-18.0); LYMPHOCYTES 3.5 %; MCH 29.2 pg (26.0-34.0); MCHC 31.7 g/dL (28.0-37.0); MCV 92.1 fL (80.0-100.0); MONOCYTES 1.4 %; MPV 7.4 fl. (7.2-11.1); NUCLEATED RBCS 0 /100WBC; PLATELET COUNT* 259 thou/uL (150-400); POLYS 94.9 %; RBC 2.86 mil/uL (4.50-6.00); RDW-CV 15.7 % (10.5-14.5); WBC 8.9 thou/uL (4.0-11.0)
[2021-04-01 10:29] LABS: ALBUMIN 2.1 g/dL (3.4-5.0); CALCIUM 7.9 mg/dL (8.5-10.1); POTASSIUM 4.9 mmol/L (3.5-5.1); TOTAL BILIRUBIN 0.5 mg/dL (<0.1-1.0); TOTAL PROTEIN 5.7 g/dL (6.4-8.2)
[2021-04-01 10:31] LABS: CREATININE 1.8 mg/dL (0.6-1.3)
[2021-04-01 13:05] LABS: BE -5.5 mmol/L (-2 to +3)
[2021-04-01 13:09] LABS: pH 7.249 (7.340-7.450)
[2021-04-01 13:10] LABS: PCO2 50.7 mmHg (35.0-45.0); PO2 146.1 mmHg (75.0-100.0)
[2021-04-01 17:08] LABS: BE -3.9 mmol/L (-2 to +3); PO2 105.7 mmHg (75.0-100.0)
[2021-04-01 17:17] LABS: PCO2 54.7 mmHg (35.0-45.0); pH 7.253 (7.340-7.450)
[2021-04-01 17:54] LABS: CALCIUM 7.1 mg/dL (8.5-10.1); CREATININE 1.8 mg/dL (0.6-1.3); POTASSIUM 4.3 mmol/L (3.5-5.1)
[2021-04-01 18:50] LABS: CALCIUM 8.4 mg/dL (8.5-10.1); POTASSIUM 4.9 mmol/L (3.5-5.1)
[2021-04-02] VITALS (94 sets, daily range): BP systolic 122–183; BP diastolic 58–88
[2021-04-02 08:07] LABS: PCO2 48.8 mmHg (35.0-45.0); PO2 85.9 mmHg (75.0-100.0); pH 7.314 (7.340-7.450)
[2021-04-02 11:48] LABS: ABSOLUTE LYMPHOCYTES 0.4 thou/uL (0.8-5.3); ABSOLUTE MONOCYTES 0.3 thou/uL (0.0-1.2); BASOPHILS 0.3 %; HEMATOCRIT 25.4 % (42.0-52.0); LYMPHOCYTES 5.3 %; MCH 29.4 pg (26.0-34.0); MCHC 31.6 g/dL (28.0-37.0); MCV 92.8 fL (80.0-100.0); MONOCYTES 3.8 %; NUCLEATED RBCS 1 /100WBC; PLATELET COUNT* 215 thou/uL (150-400); POLYS 90.6 %; RBC 2.74 mil/uL (4.50-6.00); RDW-CV 15.7 % (10.5-14.5); WBC 7.7 thou/uL (4.0-11.0)
[2021-04-02 12:13] LABS: POTASSIUM 4.6 mmol/L (3.5-5.1); TOTAL BILIRUBIN 0.4 mg/dL (<0.1-1.0); TOTAL PROTEIN 5.7 g/dL (6.4-8.2)
[2021-04-02 18:12] LABS: BE -0.1 mmol/L (-2 to +3); PO2 78.1 mmHg (75.0-100.0)
[2021-04-02 18:18] LABS: PCO2 56.9 mmHg (35.0-45.0); pH 7.293 (7.340-7.450)
[2021-04-02 23:29] LABS: CALCIUM 7.6 mg/dL (8.5-10.1); CREATININE 1.8 mg/dL (0.6-1.3); POTASSIUM 3.9 mmol/L (3.5-5.1)
[2021-04-03] VITALS (78 sets, daily range): BP systolic 44–182; BP diastolic 15–99
[2021-04-03 05:33] LABS: ABSOLUTE LYMPHOCYTES 0.6 thou/uL (0.8-5.3); ABSOLUTE MONOCYTES 0.4 thou/uL (0.0-1.2); ABSOLUTE NEUTROPHILS 6.8 thou/uL (1.6-8.1); BASOPHILS 0.4 %; HEMATOCRIT 23.7 % (42.0-52.0); HEMOGLOBIN 7.8 gm/dL (14.0-18.0); LYMPHOCYTES 7.2 %; MCH 30.2 pg (26.0-34.0); MCHC 32.9 g/dL (28.0-37.0); MCV 91.9 fL (80.0-100.0); MONOCYTES 4.6 %; MPV 8.1 fl. (7.2-11.1); NUCLEATED RBCS 1 /100WBC; PLATELET COUNT* 233 thou/uL (150-400); POLYS 87.8 %; RBC 2.58 mil/uL (4.50-6.00); RDW-CV 15.6 % (10.5-14.5); WBC 7.7 thou/uL (4.0-11.0)
[2021-04-03 05:47] LABS: CALCIUM 7.8 mg/dL (8.5-10.1); CREATININE 1.7 mg/dL (0.6-1.3); MAGNESIUM 3.2 mg/dL (1.8-2.4); TOTAL BILIRUBIN 0.4 mg/dL (<0.1-1.0); TOTAL PROTEIN 5.6 g/dL (6.4-8.2)
[2021-04-03 05:49] LABS: PHOSPHORUS* 3.7 mg/dL (2.5-4.9)
[2021-04-03 08:36] LABS: BE 4.4 mmol/L (-2 to +3); PO2 63.6 mmHg (75.0-100.0); pH 7.395 (7.340-7.450)
[2021-04-03 08:45] LABS: PCO2 50.1 mmHg (35.0-45.0)
[2021-04-03 23:27] LABS: CALCIUM 7.9 mg/dL (8.5-10.1); CREATININE 1.3 mg/dL (0.6-1.3); POTASSIUM 4.2 mmol/L (3.5-5.1)
[2021-04-04] VITALS (49 sets, daily range): BP systolic 119–149; BP diastolic 64–86
[2021-04-04 06:14] LABS: ABSOLUTE LYMPHOCYTES 0.8 thou/uL (0.8-5.3); ABSOLUTE MONOCYTES 0.5 thou/uL (0.0-1.2); ABSOLUTE NEUTROPHILS 5.2 thou/uL (1.6-8.1); BASOPHILS 0.2 %; EOSINOPHILS 0.3 %; HEMATOCRIT 23.3 % (42.0-52.0); HEMOGLOBIN 7.6 gm/dL (14.0-18.0); LYMPHOCYTES 12.4 %; MCHC 32.4 g/dL (28.0-37.0); MCV 92.4 fL (80.0-100.0); MONOCYTES 7.7 %; MPV 8.5 fl. (7.2-11.1); NUCLEATED RBCS 0 /100WBC; PLATELET COUNT* 234 thou/uL (150-400); POLYS 79.4 %; RBC 2.52 mil/uL (4.50-6.00); RDW-CV 15.7 % (10.5-14.5); WBC 6.5 thou/uL (4.0-11.0)
[2021-04-04 06:44] LABS: ALBUMIN 2.6 g/dL (3.4-5.0); CALCIUM 8.3 mg/dL (8.5-10.1); CREATININE 1.5 mg/dL (0.6-1.3); MAGNESIUM 3.3 mg/dL (1.8-2.4); POTASSIUM 4.2 mmol/L (3.5-5.1); TOTAL BILIRUBIN 0.5 mg/dL (<0.1-1.0); TOTAL PROTEIN 5.9 g/dL (6.4-8.2)
[2021-04-04 08:10] LABS: BE 4.8 mmol/L (-2 to +3); PCO2 47.2 mmHg (35.0-45.0); PO2 83.5 mmHg (75.0-100.0)
--- NOTE | 2021-04-04 11:37 | EEG ---
[address] [address] EEG STUDY REPORT Name: UZMA HUERTA Room: [address] ADM IN M.R.#: [id number] Admission: 03/09/21 Attend Phys: Julia Dominguez Discharge: Date of : 70 Report #: [id number] THIS REPORT FOR: cc: FAM - No family physician/PCP FAM - No family physician/PCP Jef Connors MD ~ DATE OF SERVICE: 03/13/2021 This patient's EEG was done to evaluate for altered mental status. EEG was done by placing the electrode by standard 10-20 system of electrode placement. Both referential and sequential montages were used for recording. Background activity is low voltage, but is present. Some of it looks like also activity, but that is difficult to separate it from the artifact. Photic stimulation is unremarkable. No active epileptiform activity was noticed. IMPRESSION: This patient's EEG is intermixed with theta range slowing. There is a nonspecific abnormality, which can occur with encephalopathy, effect of psychotropic medication, dementia, etc. No active epileptiform activity was noticed. Clinical correlation is recommended. <ELECTRONICALLY SIGNED> By: Jef Connors MD 04/04/21 1137 1624 1708Jef Connors MD /nt
[2021-04-04 14:07] LABS: URINE PHOSPHORUS 1505 mg/24 hr (390-1425)
[2021-04-05] VITALS (22 sets, daily range): BP systolic 104–158; BP diastolic 64–97
[2021-04-05 04:55] LABS: HEMATOCRIT 25.1 % (42.0-52.0); HEMOGLOBIN 7.8 gm/dL (14.0-18.0); MCH 28.4 pg (26.0-34.0); MCHC 30.9 g/dL (28.0-37.0); MCV 91.8 fL (80.0-100.0); MPV 8.5 fl. (7.2-11.1); NUCLEATED RBCS 1 /100WBC; PLATELET COUNT* 231 thou/uL (150-400); RBC 2.73 mil/uL (4.50-6.00); RDW-CV 15.8 % (10.5-14.5); WBC 9.3 thou/uL (4.0-11.0)
[2021-04-05 05:19] LABS: ALBUMIN 2.6 g/dL (3.4-5.0); CREATININE 1.2 mg/dL (0.6-1.3); MAGNESIUM 2.8 mg/dL (1.8-2.4); POTASSIUM 3.8 mmol/L (3.5-5.1); TOTAL BILIRUBIN 0.4 mg/dL (<0.1-1.0); TOTAL PROTEIN 5.6 g/dL (6.4-8.2)
[2021-04-05 05:22] LABS: PHOSPHORUS* 3.4 mg/dL (2.5-4.9)
[2021-04-05 07:39] LABS: ABSOLUTE EOSINOPHILS 0.4 thou/uL (0.0-0.7); ABSOLUTE LYMPHOCYTES 1.6 thou/uL (0.8-5.3); ABSOLUTE MONOCYTES 0.6 thou/uL (0.0-1.2); ABSOLUTE NEUTROPHILS 6.8 thou/uL (1.6-8.1); PLATELET ESTIMATE ADEQUATE
[2021-04-05 08:07] LABS: BE 3.7 mmol/L (-2 to +3); PCO2 45.6 mmHg (35.0-45.0); pH 7.416 (7.340-7.450)
[2021-04-05 15:07] LABS: URINE MAGNESIUM-mg/24hr 41.8 mg/24 hr (12.0-293.0); URINE MAGNESIUM-mg/dl 4.4 mg/dL (Not Estab.)
[2021-04-05 17:23] LABS: CALCIUM 7.5 mg/dL (8.5-10.1); CREATININE 1.2 mg/dL (0.6-1.3); MAGNESIUM 2.4 mg/dL (1.8-2.4); POTASSIUM 4.3 mmol/L (3.5-5.1)
[2021-04-06] VITALS (24 sets, daily range): BP systolic 94–135; BP diastolic 48–83
[2021-04-06 04:34] LABS: ABSOLUTE EOSINOPHILS 0.3 thou/uL (0.0-0.7); ABSOLUTE LYMPHOCYTES 1.4 thou/uL (0.8-5.3); ABSOLUTE MONOCYTES 0.4 thou/uL (0.0-1.2); BASOPHILS 0.3 %; EOSINOPHILS 3.1 %; HEMATOCRIT 23.3 % (42.0-52.0); HEMOGLOBIN 7.5 gm/dL (14.0-18.0); LYMPHOCYTES 15.8 %; MCH 29.3 pg (26.0-34.0); MCV 91.8 fL (80.0-100.0); MONOCYTES 4.3 %; MPV 8.4 fl. (7.2-11.1); NUCLEATED RBCS 0 /100WBC; PLATELET COUNT* 240 thou/uL (150-400); POLYS 76.5 %; RBC 2.54 mil/uL (4.50-6.00); RDW-CV 15.7 % (10.5-14.5); WBC 9.1 thou/uL (4.0-11.0)
[2021-04-06 05:11] LABS: ALBUMIN 2.8 g/dL (3.4-5.0); CALCIUM 8.3 mg/dL (8.5-10.1); CREATININE 1.1 mg/dL (0.6-1.3); MAGNESIUM 2.4 mg/dL (1.8-2.4); PHOSPHORUS* 5.2 mg/dL (2.5-4.9); TOTAL BILIRUBIN 0.5 mg/dL (<0.1-1.0); TOTAL PROTEIN 5.8 g/dL (6.4-8.2)
[2021-04-06 18:02] LABS: BE 9.2 mmol/L (-2 to +3); PCO2 VENOUS 58.6 mmHg (41.0-51.0); PO2 VENOUS 44.7 mmHg (35.0-45.0)
[2021-04-06 18:26] LABS: CALCIUM 8.8 mg/dL (8.5-10.1); CREATININE 1.1 mg/dL (0.6-1.3); POTASSIUM 4.5 mmol/L (3.5-5.1)
[2021-04-07] VITALS (23 sets, daily range): BP systolic 88–141; BP diastolic 47–85
[2021-04-07 11:12] LABS: ABSOLUTE BASOPHILS 0.1 thou/uL (0.0-0.2); ABSOLUTE EOSINOPHILS 0.7 thou/uL (0.0-0.7); ABSOLUTE LYMPHOCYTES 1.9 thou/uL (0.8-5.3); ABSOLUTE MONOCYTES 0.6 thou/uL (0.0-1.2); ABSOLUTE NEUTROPHILS 7.3 thou/uL (1.6-8.1); BASOPHILS 1.3 %; EOSINOPHILS 6.8 %; HEMATOCRIT 24.6 % (42.0-52.0); LYMPHOCYTES 18.1 %; MCHC 32.7 g/dL (28.0-37.0); MCV 91.7 fL (80.0-100.0); MONOCYTES 5.8 %; MPV 8.4 fl. (7.2-11.1); NUCLEATED RBCS 0 /100WBC; PLATELET COUNT* 258 thou/uL (150-400); RBC 2.68 mil/uL (4.50-6.00); RDW-CV 15.8 % (10.5-14.5); WBC 10.7 thou/uL (4.0-11.0)
[2021-04-07 11:29] LABS: ALBUMIN 2.5 g/dL (3.4-5.0); CALCIUM 7.6 mg/dL (8.5-10.1); CREATININE 0.9 mg/dL (0.6-1.3); POTASSIUM 4.1 mmol/L (3.5-5.1); TOTAL BILIRUBIN 0.6 mg/dL (<0.1-1.0); TOTAL PROTEIN 5.7 g/dL (6.4-8.2)
[2021-04-08] VITALS (15 sets, daily range): BP systolic 87–113; BP diastolic 47–69
[2021-04-08 02:54] LABS: HEMOGLOBIN 8.5 gm/dL (14.0-18.0); WBC 10.5 thou/uL (4.0-11.0)
[2021-04-08 03:06] LABS: ALBUMIN 2.6 g/dL (3.4-5.0); CALCIUM 7.6 mg/dL (8.5-10.1); CREATININE 0.9 mg/dL (0.6-1.3); MAGNESIUM 2.1 mg/dL (1.8-2.4); POTASSIUM 3.7 mmol/L (3.5-5.1); TOTAL BILIRUBIN 0.7 mg/dL (<0.1-1.0); TOTAL PROTEIN 5.9 g/dL (6.4-8.2)
[2021-04-08 03:07] LABS: HEMATOCRIT 25.3 % (42.0-52.0); MCH 30.8 pg (26.0-34.0); MCHC 33.5 g/dL (28.0-37.0); MPV 8.5 fl. (7.2-11.1); NUCLEATED RBCS 1 /100WBC; PLATELET COUNT* 281 thou/uL (150-400); RBC 2.75 mil/uL (4.50-6.00); RDW-CV 15.9 % (10.5-14.5)
[2021-04-08 05:27] LABS: ABSOLUTE EOSINOPHILS 0.4 thou/uL (0.0-0.7); ABSOLUTE LYMPHOCYTES 2.9 thou/uL (0.8-5.3); ABSOLUTE NEUTROPHILS 7.1 thou/uL (1.6-8.1); METAMYELOCYTES 4 %; MYELOCYTES 1 %
[2021-04-08 05:30] LABS: PLATELET ESTIMATE ADEQUATE
[2021-04-08 05:31] LABS: ANISOCYTOSIS 1+; POLYCHROMASIA 1+
[2021-04-08 11:35] LABS: BE 9.2 mmol/L (-2 to +3); PCO2 VENOUS 59.9 mmHg (41.0-51.0); PO2 VENOUS 59.4 mmHg (35.0-45.0)
[2021-04-08 18:01] LABS: CALCIUM 6.3 mg/dL (8.5-10.1); CREATININE 0.7 mg/dL (0.6-1.3); MAGNESIUM 1.6 mg/dL (1.8-2.4); POTASSIUM 3.3 mmol/L (3.5-5.1)
[2021-04-08 18:09] LABS: LIPASE 166 U/L (73-393); TRIGLYCERIDE 146 mg/dL (<150)
[2021-04-09] VITALS (18 sets, daily range): BP systolic 98–150; BP diastolic 52–92
[2021-04-09 08:03] LABS: ABSOLUTE BASOPHILS 0.1 thou/uL (0.0-0.2); ABSOLUTE EOSINOPHILS 0.5 thou/uL (0.0-0.7); ABSOLUTE LYMPHOCYTES 2.1 thou/uL (0.8-5.3); ABSOLUTE MONOCYTES 0.5 thou/uL (0.0-1.2); ABSOLUTE NEUTROPHILS 8.2 thou/uL (1.6-8.1); BASOPHILS 0.6 %; EOSINOPHILS 4.2 %; HEMOGLOBIN 8.6 gm/dL (14.0-18.0); LYMPHOCYTES 18.5 %; MCHC 31.9 g/dL (28.0-37.0); MONOCYTES 4.8 %; MPV 8.8 fl. (7.2-11.1); NUCLEATED RBCS 1 /100WBC; PLATELET COUNT* 318 thou/uL (150-400); POLYS 71.9 %; RBC 2.97 mil/uL (4.50-6.00); RDW-CV 15.6 % (10.5-14.5); WBC 11.4 thou/uL (4.0-11.0)
[2021-04-09 08:08] LABS: CREATININE 0.9 mg/dL (0.6-1.3); POTASSIUM 3.4 mmol/L (3.5-5.1)
[2021-04-09 08:09] LABS: CALCIUM 8.5 mg/dL (8.5-10.1)
[2021-04-09] MEDS ORDERED: PROTONIX IV40 MG IVPUSH (09:41)
[2021-04-09] MEDS ORDERED: LORAZEPAM2 MG/1 M1 IVPUSH (09:41)
[2021-04-09] MEDS ORDERED: IPRAT-ALBUT 0.5-3 ML INH (09:41)
[2021-04-09] MEDS ORDERED: DEXAMETHAS10 MG/1 ML IV (09:41)
[2021-04-09] MEDS ORDERED: LIDODERM1 EACH TOP (09:41)
[2021-04-09] MEDS ORDERED: FENTANYL 050 MCG/1 M IVPUSH (09:41)
[2021-04-09] MEDS ORDERED: PROBIOTIC1 EAC1 PO (09:41)
[2021-04-09] MEDS ORDERED: VITAMINC500 PO (09:41)
[2021-04-09] MEDS ORDERED: LOVENOX150 MG/1 M SUBQ (09:41)
[2021-04-09] MEDS ORDERED: LACTULOSE20 GM/30 M PERTUBE (09:41)
[2021-04-09] MEDS ORDERED: NOVOLOG100 UNIT/M SUBQ (09:41)
[2021-04-09] MEDS ORDERED: RELISTOR12 MG/0.1 SUBQ (09:41)
[2021-04-09] MEDS ORDERED: METOCLOPRAM5 MG/1 ML IVPUSH (09:41)
[2021-04-09] MEDS ORDERED: SENEXON-S 50-81 EACH PO (09:41)
[2021-04-09 18:18] LABS: CALCIUM 7.9 mg/dL (8.5-10.1); CREATININE 0.7 mg/dL (0.6-1.3); POTASSIUM 3.3 mmol/L (3.5-5.1)
[2021-04-10] VITALS (23 sets, daily range): BP systolic 104–164; BP diastolic 36–101
[2021-04-10 11:25] LABS: CREATININE 0.6 mg/dL (0.6-1.3)
[2021-04-10 11:30] LABS: ALBUMIN 2.5 g/dL (3.4-5.0); MAGNESIUM 1.9 mg/dL (1.8-2.4); TOTAL BILIRUBIN 0.4 mg/dL (<0.1-1.0); TOTAL PROTEIN 5.7 g/dL (6.4-8.2)
[2021-04-10 17:37] LABS: BE 5.1 mmol/L (-2 to +3); PCO2 VENOUS 43.7 mmHg (41.0-51.0); PO2 VENOUS 55.2 mmHg (35.0-45.0)
[2021-04-10 17:47] LABS: CALCIUM 9.1 mg/dL (8.5-10.1); CREATININE 0.8 mg/dL (0.6-1.3); MAGNESIUM 1.9 mg/dL (1.8-2.4); POTASSIUM 3.7 mmol/L (3.5-5.1)
[2021-04-10 17:55] LABS: LIPASE 162 U/L (73-393); TRIGLYCERIDE 158 mg/dL (<150)
[2021-04-11] VITALS (19 sets, daily range): BP systolic 97–152; BP diastolic 56–107
[2021-04-11 05:36] LABS: ABSOLUTE BASOPHILS 0.1 thou/uL (0.0-0.2); ABSOLUTE EOSINOPHILS 0.4 thou/uL (0.0-0.7); ABSOLUTE LYMPHOCYTES 1.5 thou/uL (0.8-5.3); ABSOLUTE MONOCYTES 0.7 thou/uL (0.0-1.2); ABSOLUTE NEUTROPHILS 8.8 thou/uL (1.6-8.1); BASOPHILS 0.8 %; EOSINOPHILS 3.4 %; HEMATOCRIT 25.5 % (42.0-52.0); HEMOGLOBIN 8.3 gm/dL (14.0-18.0); MCHC 32.6 g/dL (28.0-37.0); MONOCYTES 5.9 %; MPV 8.6 fl. (7.2-11.1); NUCLEATED RBCS 1 /100WBC; PLATELET COUNT* 334 thou/uL (150-400); POLYS 76.9 %; RBC 2.77 mil/uL (4.50-6.00); RDW-CV 16.1 % (10.5-14.5); WBC 11.5 thou/uL (4.0-11.0)
[2021-04-11 06:13] LABS: ALBUMIN 2.7 g/dL (3.4-5.0); CALCIUM 8.1 mg/dL (8.5-10.1); CREATININE 0.7 mg/dL (0.6-1.3); MAGNESIUM 2.2 mg/dL (1.8-2.4); TOTAL BILIRUBIN 0.6 mg/dL (<0.1-1.0); TOTAL PROTEIN 5.9 g/dL (6.4-8.2)
[2021-04-11 06:22] LABS: POTASSIUM 2.9 mmol/L (3.5-5.1)
[2021-04-11 14:40] LABS: CALCIUM 7.7 mg/dL (8.5-10.1); CREATININE 0.8 mg/dL (0.6-1.3); MAGNESIUM 2.2 mg/dL (1.8-2.4)
[2021-04-11 14:43] LABS: POTASSIUM 4.5 mmol/L (3.5-5.1)
[2021-04-12] VITALS (20 sets, daily range): BP systolic 106–161; BP diastolic 64–94
[2021-04-12 04:44] LABS: HEMOGLOBIN 7.9 gm/dL (14.0-18.0); MCH 31.1 pg (26.0-34.0); MCHC 34.4 g/dL (28.0-37.0); MCV 90.4 fL (80.0-100.0); MPV 9.3 fl. (7.2-11.1); NUCLEATED RBCS 0 /100WBC; PLATELET COUNT* 301 thou/uL (150-400); RBC 2.54 mil/uL (4.50-6.00); RDW-CV 16.3 % (10.5-14.5)
[2021-04-12 05:04] LABS: ALBUMIN 2.6 g/dL (3.4-5.0); CALCIUM 7.2 mg/dL (8.5-10.1); CREATININE 0.7 mg/dL (0.6-1.3); POTASSIUM 3.4 mmol/L (3.5-5.1); TOTAL BILIRUBIN 0.8 mg/dL (<0.1-1.0); TOTAL PROTEIN 5.6 g/dL (6.4-8.2)
[2021-04-12 05:21] LABS: PHOSPHORUS* 4.1 mg/dL (2.5-4.9)
[2021-04-12 07:19] LABS: ABSOLUTE BASOPHILS 0.2 thou/uL (0.0-0.2); ABSOLUTE EOSINOPHILS 0.4 thou/uL (0.0-0.7); ABSOLUTE LYMPHOCYTES 1.9 thou/uL (0.8-5.3); ABSOLUTE MONOCYTES 0.6 thou/uL (0.0-1.2); ABSOLUTE NEUTROPHILS 8.9 thou/uL (1.6-8.1); ANISOCYTOSIS 2+; POLYCHROMASIA 2+
[2021-04-12 07:20] LABS: PLATELET ESTIMATE INCREASED
[2021-04-13] VITALS (20 sets, daily range): BP systolic 108–128; BP diastolic 67–86
[2021-04-13 04:55] LABS: HEMATOCRIT 25.4 % (42.0-52.0); HEMOGLOBIN 8.1 gm/dL (14.0-18.0); MCH 28.7 pg (26.0-34.0); MCHC 31.9 g/dL (28.0-37.0); MCV 90.2 fL (80.0-100.0); MPV 8.3 fl. (7.2-11.1); RBC 2.82 mil/uL (4.50-6.00); WBC 13.8 thou/uL (4.0-11.0)
[2021-04-13 05:15] LABS: ALBUMIN 2.8 g/dL (3.4-5.0); CALCIUM 8.5 mg/dL (8.5-10.1); CREATININE 0.6 mg/dL (0.6-1.3); POTASSIUM 4.1 mmol/L (3.5-5.1); TOTAL BILIRUBIN 0.4 mg/dL (<0.1-1.0); TOTAL PROTEIN 6.1 g/dL (6.4-8.2)
[2021-04-13 09:35] LABS: BE 2.5 mmol/L (-2 to +3); PCO2 40.6 mmHg (35.0-45.0); PO2 104.8 mmHg (75.0-100.0); pH 7.439 (7.340-7.450)
[2021-04-13 11:31] LABS: ABSOLUTE BASOPHILS 0.1 thou/uL (0.0-0.2); ABSOLUTE EOSINOPHILS 0.3 thou/uL (0.0-0.7); ABSOLUTE LYMPHOCYTES 1.3 thou/uL (0.8-5.3); ABSOLUTE MONOCYTES 0.4 thou/uL (0.0-1.2); ABSOLUTE NEUTROPHILS 10.4 thou/uL (1.6-8.1); BASOPHILS 1.1 %; EOSINOPHILS 2.5 %; HEMATOCRIT 23.3 % (42.0-52.0); HEMOGLOBIN 8.4 gm/dL (14.0-18.0); LYMPHOCYTES 10.4 %; MCH 32.9 pg (26.0-34.0); MCHC 35.9 g/dL (28.0-37.0); MCV 91.6 fL (80.0-100.0); MONOCYTES 2.9 %; MPV 8.3 fl. (7.2-11.1); NUCLEATED RBCS 0 /100WBC; PLATELET COUNT* 311 thou/uL (150-400); POLYS 83.1 %; RBC 2.54 mil/uL (4.50-6.00); RDW-CV 15.9 % (10.5-14.5); WBC 12.6 thou/uL (4.0-11.0)
[2021-04-14] VITALS (22 sets, daily range): BP systolic 110–145; BP diastolic 62–90
[2021-04-14 04:42] LABS: ABSOLUTE BASOPHILS 0.1 thou/uL (0.0-0.2); ABSOLUTE EOSINOPHILS 0.3 thou/uL (0.0-0.7); ABSOLUTE LYMPHOCYTES 2.2 thou/uL (0.8-5.3); ABSOLUTE MONOCYTES 0.8 thou/uL (0.0-1.2); ABSOLUTE NEUTROPHILS 10.2 thou/uL (1.6-8.1); BASOPHILS 0.8 %; EOSINOPHILS 2.1 %; HEMATOCRIT 26.6 % (42.0-52.0); HEMOGLOBIN 8.6 gm/dL (14.0-18.0); LYMPHOCYTES 15.8 %; MCH 28.9 pg (26.0-34.0); MCHC 32.2 g/dL (28.0-37.0); MCV 89.9 fL (80.0-100.0); MONOCYTES 6.2 %; MPV 8.1 fl. (7.2-11.1); NUCLEATED RBCS 0 /100WBC; POLYS 75.1 %; RBC 2.96 mil/uL (4.50-6.00); RDW-CV 15.5 % (10.5-14.5); WBC 13.6 thou/uL (4.0-11.0)
[2021-04-14 04:55] LABS: PLATELET COUNT* 389 thou/uL (150-400)
[2021-04-14 12:00] LABS: HEMATOCRIT 27.2 % (42.0-52.0); HEMOGLOBIN 8.9 gm/dL (14.0-18.0); MCH 29.8 pg (26.0-34.0); MCHC 32.6 g/dL (28.0-37.0); MCV 91.3 fL (80.0-100.0); MPV 8.3 fl. (7.2-11.1); RBC 2.98 mil/uL (4.50-6.00); RDW-CV 16.2 % (10.5-14.5); WBC 14.3 thou/uL (4.0-11.0)
[2021-04-14 12:23] LABS: ALBUMIN 2.9 g/dL (3.4-5.0); CALCIUM 8.6 mg/dL (8.5-10.1); CREATININE 0.6 mg/dL (0.6-1.3); MAGNESIUM 1.6 mg/dL (1.8-2.4); POTASSIUM 3.6 mmol/L (3.5-5.1); TOTAL BILIRUBIN 0.5 mg/dL (<0.1-1.0); TOTAL PROTEIN 6.2 g/dL (6.4-8.2)
[2021-04-15] VITALS (24 sets, daily range): BP systolic 89–144; BP diastolic 51–87
[2021-04-15 04:31] LABS: WBC 15.3 thou/uL (4.0-11.0)
[2021-04-15 04:51] LABS: PHOSPHORUS* 3.3 mg/dL (2.5-4.9)
[2021-04-15 04:52] LABS: ALBUMIN 3.4 g/dL (3.4-5.0); CALCIUM 8.5 mg/dL (8.5-10.1); CREATININE 0.6 mg/dL (0.6-1.3); MAGNESIUM 1.7 mg/dL (1.8-2.4); POTASSIUM 3.5 mmol/L (3.5-5.1); TOTAL BILIRUBIN 0.7 mg/dL (<0.1-1.0)
[2021-04-15 05:18] LABS: HEMATOCRIT 28.5 % (42.0-52.0); HEMOGLOBIN 8.9 gm/dL (14.0-18.0); MCH 28.4 pg (26.0-34.0); MCHC 31.1 g/dL (28.0-37.0); MCV 91.1 fL (80.0-100.0); MPV 8.3 fl. (7.2-11.1); NUCLEATED RBCS 0 /100WBC; PLATELET COUNT* 434 thou/uL (150-400); RBC 3.12 mil/uL (4.50-6.00); RDW-CV 16.1 % (10.5-14.5)
[2021-04-15 07:00] LABS: ABSOLUTE EOSINOPHILS 0.2 thou/uL (0.0-0.7); ABSOLUTE LYMPHOCYTES 2.6 thou/uL (0.8-5.3); ABSOLUTE MONOCYTES 1.5 thou/uL (0.0-1.2); METAMYELOCYTES 2 %; PLATELET ESTIMATE INCREASED
[2021-04-15 07:01] LABS: HYPOCHROMASIA 1+; POLYCHROMASIA 1+
[2021-04-16 00:01] VITALS: BP 117/67
[2021-04-16 01:01] VITALS: BP 125/75
[2021-04-16 02:02] VITALS: BP 106/60
[2021-04-16 03:01] VITALS: BP 108/69
[2021-04-16 04:01] VITALS: BP 120/69
[2021-04-16 04:36] LABS: ABSOLUTE BASOPHILS 0.1 thou/uL (0.0-0.2); ABSOLUTE LYMPHOCYTES 1.1 thou/uL (0.8-5.3); ABSOLUTE MONOCYTES 0.5 thou/uL (0.0-1.2); ABSOLUTE NEUTROPHILS 12.1 thou/uL (1.6-8.1); BASOPHILS 0.7 %; EOSINOPHILS 0.1 %; HEMATOCRIT 26.3 % (42.0-52.0); HEMOGLOBIN 8.4 gm/dL (14.0-18.0); LYMPHOCYTES 7.9 %; MCH 28.6 pg (26.0-34.0); MCV 89.6 fL (80.0-100.0); MONOCYTES 3.7 %; MPV 8.2 fl. (7.2-11.1); NUCLEATED RBCS 0 /100WBC; PLATELET COUNT* 368 thou/uL (150-400); POLYS 87.6 %; RBC 2.94 mil/uL (4.50-6.00); RDW-CV 15.8 % (10.5-14.5); WBC 13.8 thou/uL (4.0-11.0)
[2021-04-16 05:01] VITALS: BP 116/61
[2021-04-16 05:30] LABS: ALBUMIN 3.1 g/dL (3.4-5.0); CALCIUM 8.3 mg/dL (8.5-10.1); CREATININE 0.5 mg/dL (0.6-1.3); MAGNESIUM 1.9 mg/dL (1.8-2.4); POTASSIUM 4.2 mmol/L (3.5-5.1); TOTAL BILIRUBIN 0.6 mg/dL (<0.1-1.0); TOTAL PROTEIN 5.7 g/dL (6.4-8.2)
[2021-04-16] MEDS ORDERED: PROTONIX IV40 MG IVPUSH (09:29)
[2021-04-16] MEDS ORDERED: WELLBUTRIN 100100 MG PO (09:29)
[2021-04-16] MEDS ORDERED: ERYTHROMYCIN250 M1 PO (09:29)
[2021-04-16] MEDS ORDERED: FENTANYL1 EAC1 TRANSDERM (09:29)
== END 2021-04-16 13:50 | DRG 4 ==
LOC: M.ERS 21:05 → M.TBA-ER 22:44 → M.ERS 22:44 → M.TBA-ER 22:44 → M.ICU 22:44 → M.ORTHSURG 22:44 → M.ICU 03-12 18:51
PROVIDERS: Anesthesiology; Internal Medicine; Internal Medicine Critical Care Medicine; Pediatrics; Personal Emergency Response Attendant; ADMIT Internal Medicine; ATTEND Internal Medicine
PROC: 5A0935A Assistance with Respiratory Ventilation, Less than 24 Consecutive Hours, High Flow/Velocity Cannula (ICD-10-PCS; 2021-03-10)
PROC: XW033E5 Introduction of Remdesivir Anti-infective into Peripheral Vein, Percutaneous Approach, New Technology Group 5 (ICD-10-PCS; 2021-03-11)
PROC: 5A09357 Assistance with Respiratory Ventilation, Less than 24 Consecutive Hours, Continuous Positive Airway Pressure (ICD-10-PCS; 2021-03-11)
PROC: 5A1955Z Respiratory Ventilation, Greater than 96 Consecutive Hours (ICD-10-PCS; 2021-03-12)
PROC: 02HV33Z Insertion of Infusion Device into Superior Vena Cava, Percutaneous Approach (ICD-10-PCS; 2021-03-12)
PROC: 0BH17EZ Insertion of Endotracheal Airway into Trachea, Via Natural or Artificial Opening (ICD-10-PCS; 2021-03-12)
PROC: 5A09357 Assistance with Respiratory Ventilation, Less than 24 Consecutive Hours, Continuous Positive Airway Pressure (ICD-10-PCS; 2021-03-29)
PROC: 5A09357 Assistance with Respiratory Ventilation, Less than 24 Consecutive Hours, Continuous Positive Airway Pressure (ICD-10-PCS; 2021-03-30)
PROC: 0B928ZZ Drainage of Carina, Via Natural or Artificial Opening Endoscopic (ICD-10-PCS; principal; 2021-03-31)
PROC: 0B110F4 Bypass Trachea to Cutaneous with Tracheostomy Device, Open Approach (ICD-10-PCS; 2021-04-07)
PROC: 0DH68UZ Insertion of Feeding Device into Stomach, Via Natural or Artificial Opening Endoscopic (ICD-10-PCS; 2021-04-07)
DX: A41.89 Other specified sepsis (principal); U07.1 COVID-19; J12.82 Pneumonia due to coronavirus disease 2019; N17.0 Acute kidney failure with tubular necrosis; E43 Unspecified severe protein-calorie malnutrition; J80 Acute respiratory distress syndrome; I26.99 Other pulmonary embolism without acute cor pulmonale; J44.0 Chronic obstructive pulmonary disease with (acute) lower respiratory infection; M62.82 Rhabdomyolysis; K56.7 Ileus, unspecified; E78.5 Hyperlipidemia, unspecified; E66.9 Obesity, unspecified; F32.9 Major depressive disorder, single episode, unspecified; I10 Essential (primary) hypertension; G47.33 Obstructive sleep apnea (adult) (pediatric); E11.65 Type 2 diabetes mellitus with hyperglycemia; R74.01 Elevation of levels of liver transaminase levels; K59.00 Constipation, unspecified; Z79.899 Other long term (current) drug therapy; Z68.35 Body mass index [BMI] 35.0-35.9, adult; Z88.6 Allergy status to analgesic agent